=== PATIENT | female | born 1990 | race Caucasian/White ===

== ENCOUNTER 2021-01-06 10:57 | Inpatient (IN) | payer BC, MEDICAID ==
[~2021-01-06] VITALS: Ht 170.2 cm; Wt 56.7 kg
--- NOTE | 2021-01-06 11:27 | NUR ---
30 years old female alert, oriented x4 presents to er c/o sharp right side abdominal pain with nausea no vomiting.
[2021-01-06] MEDS ORDERED: IV NORMAL SALINE 1000 ML BAG IV ONE ×2 (11:30→14:00)
[2021-01-06 11:38] LABS: MEAN CORPUSCULAR HEMOGLOBIN 29.5 uug (24.7-32.8); MEAN CORPUSCULAR VOLUME 89.9 fL (75.5-95.3); PLATELET COUNT (AUTO) 486 K/uL (179-408)
[2021-01-06 11:41] LABS: POTASSIUM 3.4 mmol/L (3.5-5.1)
[2021-01-06 11:48] LABS: BILIRUBIN,DIRECT 0.1 mg/dL (0.0-0.2); BILIRUBIN,TOTAL 0.2 mg/dL (0.2-1.0); CREATININE 0.7 mg/dL (0.6-1.3); TOTAL PROTEIN, SERUM 8.1 g/dL (6.4-8.2)
[2021-01-06 13:13] LABS: *BLOOD, URINE 3+ (NEGATIVE); *CLARITY,URINE CLEAR (CLEAR); *COLOR,URINE YELLOW (YELLOW); *URINE HCG, QUAL NEGATIVE (NEGATIVE); UGLUCOSE NEGATIVE (NEGATIVE)
[2021-01-06 13:14] LABS: *BILIRUBIN,URIN 1+ (NEGATIVE); *KETONES,URINE NEGATIVE (NEGATIVE); *UROBILINOGEN,URINE 0.2 E.U./dl (NORMAL); LEUKOCYTE ESTERASE ,URINE TRACE (NEGATIVE); NITRITE, URINE NEGATIVE (NEGATIVE)
[2021-01-06] MEDS ORDERED: PIPERACILLIN SODIUM/TAZOBACTAM 3.375 G in IV DEXTROSE 5% 50 ML IV ONE (14:00)
[2021-01-06] MEDS ORDERED: PIPERACILLIN/TAZOBACTAM/D5W 50 ML IV ONE (14:05)
--- NOTE | 2021-01-06 15:26 | NUR ---
patient reassess resting no acute distress vital stable awaiting for admit bed.
[2021-01-06 16:10] LABS: BACTERIA,URINE FEW /HPF (NONE SEEN); MUCUS,URINE FEW /LPF (0-FEW); SQUAMOUS EPITHELIAL CELL,UR FEW /HPF (NONE SEEN); URINE AMORPHOUS PHOSPHATES FEW /HPF
[2021-01-06] MEDS ORDERED: ONDANSETRON 4 MG/2 ML VIAL IV PRN (17:15)
[2021-01-06] MEDS ORDERED: ACETAMINOPHEN 650 MG SUPP.RECT RC PRN (17:15)
[2021-01-06] MEDS: levoFLOXacin 500 MG/D5W 500 MG in PREMIXED 1 EACH IV SCH (17:29)
[2021-01-06] MEDS ORDERED: levoFLOXacin 500 MG/D5W 100 ML ONE (17:35)
--- NOTE | 2021-01-06 18:24 | NUR ---
patient denies breakthrough pain, no nausea vomiting, resume NPO. vital stable.
[2021-01-06] MEDS: POTASSIUM CHLORIDE 20 MEQ in IV D5 1/2 NS 1000 ML 1,000 ML IV PRN (18:50)
--- NOTE | 2021-01-06 19:13 | NUR ---
Report recieved on pt. from RN for continuity of care.
--- NOTE | 2021-01-06 19:15 | NUR ---
covid swab collected/sent to lab, report endorsed to nurse Moeller all questions answered.
[2021-01-06 22:27] VITALS: BP 116/78
[2021-01-06] MEDS: MORPHINE SULFATE 2 MG/1 ML DISP.SYRIN IV PRN (23:23)
[2021-01-06] MEDS: METRONIDAZOLE 500 MG/NS 100ML 500 MG in PREMIXED 1 EACH IV SCH (23:23)
[2021-01-06] MEDS ORDERED: METRONIDAZOLE 500 MG/NS 100ML 100 ML IV ONE (23:58)
--- NOTE | 2021-01-07 01:51 | NUR ---
Received patient from ER via WC. Ambulated from the WC to the bed without assistance. Steady gait, repositioned self in bed. C/o 4/10 abdominal pain, sharp. Pain worsened to 8/10 administered morphine PRN, tolerated well, effective 3/10 pain. No s/s of adverse reaction noted from antibiotics IV. Patient is sleeping intermittently. Oriented pt to room. Belonging list completed. Routine admission care done. Call light and al personal items within pt reach. Safety measure maintained.Continue care as planned.
[2021-01-07 04:00] VITALS: BP 117/66
[2021-01-07] MEDS: MORPHINE SULFATE 2 MG/1 ML DISP.SYRIN IV PRN ×5 (04:12→20:09)
[2021-01-07] MEDS: METRONIDAZOLE 500 MG/NS 100ML 500 MG in PREMIXED 1 EACH IV SCH ×3 (05:46→21:17)
[2021-01-07 06:08] LABS: HEMATOCRIT 32.3 % (31.2-41.9); MEAN CORPUSCULAR HEMOGLOBIN 29.6 uug (24.7-32.8); MEAN CORPUSCULAR VOLUME 90.2 fL (75.5-95.3); PLATELET COUNT (AUTO) 455 K/uL (179-408)
[2021-01-07 06:24] LABS: BILIRUBIN,TOTAL 0.3 mg/dL (0.2-1.0); CREATININE 0.6 mg/dL (0.6-1.3); MAGNESIUM 1.8 mg/dL (1.8-2.4); PHOSPHOROUS 3.2 mg/dL (2.5-4.9); POTASSIUM 3.1 mmol/L (3.5-5.1); TOTAL PROTEIN, SERUM 6.3 g/dL (6.4-8.2)
[2021-01-07] MEDS: POTASSIUM CHLORIDE 20 MEQ in IV D5 1/2 NS 1000 ML 1,000 ML IV PRN ×2 (07:29→21:14)
[2021-01-07] MEDS ORDERED: POTASSIUM CHLORIDE 20 MEQ TAB.PRT.SR PO ONE (08:15)
--- NOTE | 2021-01-07 08:30 | NUR ---
patient father Mr bui called, patient Miss Mooney verbally consented to give information and talk to her father, father was insisting to call Dr Montano right away and would like dr Montano to see his daughter right away and wants himself to be present as well. this script writer called dr Carter, and spoke to dr Carter, per dr Carter he is not going to see patient here, patient can follow up outpatient with him, and patient can be started on clear liquid diet. patient father made aware that they can follow up with GI dr Carter outpatient and patient will be started on clear liquid diet. dr garvin is aware as well.
[2021-01-07] MEDS: PANTOPRAZOLE SODIUM 40 MG VIAL IV SCH (08:45)
--- NOTE | 2021-01-07 09:41 | NUR ---
patient tolerated clear liquid well, denied nausea or vomiting
[2021-01-07 11:44] VITALS: BP 108/56
[2021-01-07] MEDS ORDERED: NORG1TAB75 PO (13:41)
[2021-01-07] MEDS: levoFLOXacin 500 MG/D5W 500 MG in PREMIXED 1 EACH IV SCH (16:48)
[2021-01-07 17:05] VITALS: BP 110/59
--- NOTE | 2021-01-07 19:35 | NUR ---
Received pt in bed, awake and verbally responsive, able to make needs known. No signs of respiratory distress. IVF infusing well .Safety measures initiated, call light within reach, will continue to monitor.
[2021-01-07 20:25] VITALS: BP 140/111
[2021-01-07 20:30] VITALS: BP 109/68
[2021-01-08] MEDS: MORPHINE SULFATE 2 MG/1 ML DISP.SYRIN IV PRN ×6 (01:13→23:52)
[2021-01-08 04:55] VITALS: BP 113/69
[2021-01-08] MEDS: METRONIDAZOLE 500 MG/NS 100ML 500 MG in PREMIXED 1 EACH IV SCH ×3 (05:41→21:30)
--- NOTE | 2021-01-08 06:19 | NUR ---
Slept intermittently through the night. No significant change in condition noted. Administered pain medication q3h as ordered. Pt tolerated medications well. IVF infusing well. All needs attended to and met. Safety and comfort measures provided. Call light within reach.
[2021-01-08 06:42] LABS: HEMATOCRIT 31.5 % (31.2-41.9); MEAN CORPUSCULAR HEMOGLOBIN 29.9 uug (24.7-32.8); MEAN CORPUSCULAR VOLUME 89.5 fL (75.5-95.3); PLATELET COUNT (AUTO) 511 K/uL (179-408)
[2021-01-08 06:58] LABS: CREATININE 0.6 mg/dL (0.6-1.3); MAGNESIUM 1.7 mg/dL (1.8-2.4); POTASSIUM 3.6 mmol/L (3.5-5.1)
[2021-01-08] MEDS: PANTOPRAZOLE SODIUM 40 MG VIAL IV SCH (08:09)
[2021-01-08 11:45] VITALS: BP 106/69
--- NOTE | 2021-01-08 12:03 | NUR ---
Awake, alert and responsive. In no acute distress. No nausea or vomiting reported. IV infusing well. Kept comfortable. Will continue to monitor.
[2021-01-08] MEDS: POTASSIUM CHLORIDE 20 MEQ in IV D5 1/2 NS 1000 ML 1,000 ML IV PRN (12:12)
[2021-01-08] MEDS ORDERED: MAGNESIUM OXIDE 400 MG TABLET PO ONE (12:15)
[2021-01-08] MEDS: MAGNESIUM SULFATE/D5W 100 ML IV SCH ×2 (14:33→16:05)
[2021-01-08 15:29] VITALS: BP 107/63
--- NOTE | 2021-01-08 16:10 | NUR ---
Rechecked pt's temp noted 99 degrees F.
[2021-01-08] MEDS: levoFLOXacin 500 MG/D5W 500 MG in PREMIXED 1 EACH IV SCH (17:40)
--- NOTE | 2021-01-08 19:14 | NUR ---
Patient in bed, alert and responsive. In no acute distress. IV hydration ongoing. On atb no adverse reaction noted. Safety precautions maintained. Endorsed to next shift.
[2021-01-08 20:30] VITALS: BP 119/72
--- NOTE | 2021-01-08 21:11 | NUR ---
Patient in bed awake alert x 4. On Ra.No acute distress noted. Ambulates to bathroom. Iv on right hand 22g patent and intact with IVf infusing well.Patient noted with temp of 100.5.[place] removed and tylenol supp given. Patient was already seen by ID/N.P with leukocytosis .Temp went down to 97.8 .Administered IV ATb as ordered .No a/r reaction noted. Family member at bedside .Will continue to monitor.
[2021-01-09] MEDS: MORPHINE SULFATE 2 MG/1 ML DISP.SYRIN IV PRN ×3 (04:29→21:50)
[2021-01-09 04:36] VITALS: BP 110/80
[2021-01-09] MEDS: METRONIDAZOLE 500 MG/NS 100ML 500 MG in PREMIXED 1 EACH IV SCH ×3 (05:31→21:33)
[2021-01-09 06:28] LABS: HEMATOCRIT 32.8 % (31.2-41.9); MEAN CORPUSCULAR HEMOGLOBIN 29.6 uug (24.7-32.8); MEAN CORPUSCULAR VOLUME 90.9 fL (75.5-95.3); PLATELET COUNT (AUTO) 533 K/uL (179-408)
[2021-01-09] MEDS ORDERED: SWABABLE VALVE TRANSFER SET EA MC ONE (07:29)
[2021-01-09] MEDS ORDERED: DIATR MEGLU/DIATRIZOATE SODIUM 30 ML BOTTLE ONE (07:29)
[2021-01-09] MEDS ORDERED: IV NORMAL SALINE 250 ML IV ONE (07:29)
[2021-01-09] MEDS ORDERED: IOHEXOL 300MG/ML 100 ML INFUS..BTL ONE (07:29)
[2021-01-09] MEDS: PANTOPRAZOLE SODIUM 40 MG VIAL IV SCH (09:12)
[2021-01-09] MEDS: POTASSIUM CHLORIDE 20 MEQ in IV D5 1/2 NS 1000 ML 1,000 ML IV PRN ×2 (09:38→23:18)
[2021-01-09 11:36] VITALS: BP 100/66
[2021-01-09 15:40] VITALS: BP 98/60
[2021-01-09] MEDS: levoFLOXacin 500 MG/D5W 500 MG in PREMIXED 1 EACH IV SCH (16:46)
--- NOTE | 2021-01-09 18:02 | NUR ---
Patient is alert oriented x4, verbally responsive, no sob, resp even nonlabored skin warm and dry to touch, patient kept npo, Examined by various consultations, Dr Leslie gave telephone order for laparoscopy possible laparotomy possible bowel resection, dr Carter was talking to patient while patient father was on the phone as well, dr garvin made aware about plan of care. patient still complains pain and tenderness to her lower abdomen, some nausea but manageable without medication. Addendum: 01/09/21 at 1812 by FLO BLAIR RN, RN able to ambulate herself, IV is intact to left antecubital and right hand, no signs and symptoms of infiltration noted.
--- NOTE | 2021-01-09 19:24 | NUR ---
consent printed and provided to patient for laproscopy tomorrow, endorsed to next shift to follow up
--- NOTE | 2021-01-09 19:45 | NUR ---
Patient in bed awake and alert ,denies abd'l pain at this time.No n/v.No s/s of distress noted. Consent signed by patient ,placed in the patient's chart.Iv on right hand patent and intact with IVf infusing well. Left AC Iv noted infiltrated. Dc'd IV line .NPO after midnight. Family members at bedside. VSS.will continue to monitor.
[2021-01-09 20:15] VITALS: BP 124/66
[2021-01-10] MEDS: MORPHINE SULFATE 2 MG/1 ML DISP.SYRIN IV PRN ×3 (03:37→12:09)
[2021-01-10 04:15] VITALS: BP 109/65
[2021-01-10] MEDS: METRONIDAZOLE 500 MG/NS 100ML 500 MG in PREMIXED 1 EACH IV SCH ×3 (05:46→21:22)
[2021-01-10] MEDS ORDERED: HYDROMORPHONE 2 MG/1 ML DISP.SYRIN ONE (06:51)
[2021-01-10] MEDS ORDERED: ROCURONIUM BROMIDE 50 MG/5 ML VIAL ONE (06:51)
[2021-01-10] MEDS ORDERED: MIDAZOLAM HCL 2 MG/2 ML VIAL ONE (06:51)
--- NOTE | 2021-01-10 06:53 | NUR ---
Patient awake in no acute distress noted.Picked up for surgery this morning.Will endorse to oncoming shift.
[2021-01-10] MEDS ORDERED: BUPIVACAINE/EPI PF 0.25% 30 ML VIAL ONE (07:18)
--- NOTE | 2021-01-10 07:30 | NUR ---
Patient is currently in the OR.
[2021-01-10] MEDS ORDERED: NEOSTIGMINE METHYLSULFATE 10 MG/10 ML VIAL IM ONE (08:48)
[2021-01-10] MEDS ORDERED: SUCCINYLCHOLINE CHLORIDE 200 MG/10 ML VIAL IV ONE (08:48)
[2021-01-10] MEDS ORDERED: PROPOFOL 200 MG/20 ML BOTTLE IV ONE (08:48)
[2021-01-10] MEDS ORDERED: LIDOCAINE-MPF 2% 5 ML VIAL IJ ONE (08:48)
[2021-01-10] MEDS ORDERED: IV NORMAL SALINE 1000 ML BAG IV ONE (08:48)
[2021-01-10] MEDS ORDERED: SEVOFLURANE 250 ML BOTTLE IH ONE (08:48)
[2021-01-10] MEDS ORDERED: IRR STERIL WATER FOR IRR 1000 ML BOTTLE IR ONE (08:48)
[2021-01-10] MEDS ORDERED: KETOROLAC TROMETHAMINE 30 MG INJ IM ONE (08:48)
[2021-01-10] MEDS ORDERED: GLYCOPYRROLATE 0.2 MG/ML VIAL IJ ONE (08:48)
[2021-01-10] MEDS ORDERED: DEXAMETHASONE SOD PHOSPHATE 4 MG INJ IV ONE (08:48)
[2021-01-10] MEDS ORDERED: ONDANSETRON 4 MG/2 ML VIAL IV ONE (08:48)
[2021-01-10] MEDS ORDERED: ONDANSETRON 4 MG/2 ML VIAL ONE (09:02)
[2021-01-10] MEDS ORDERED: METOCLOPRAMIDE HCL 10 MG/2 ML VIAL ONE (09:14)
--- NOTE | 2021-01-10 10:05 | NUR ---
Patient back on the floor from the OR. Patient received on 2L O2 via NC with oxygen saturation of 98%. Patient has joseluis hose on with SCDs running. Abdominal dressing is clean, dry, and intact at this time. Right hand IV is intact running IVF as ordered with no redness or swelling at this time. Will start patient on incentive spirometer and provide education. Patient states she is having abdominal pain 9 out of 10, morphine administered as ordered.
[2021-01-10] MEDS: PANTOPRAZOLE SODIUM 40 MG VIAL IV SCH (10:08)
[2021-01-10 12:00] VITALS: BP 112/64
[2021-01-10] MEDS: METOCLOPRAMIDE HCL 10 MG/2 ML VIAL IV SCH ×2 (12:02→17:15)
[2021-01-10 12:32] LABS: HEMATOCRIT 36.1 % (31.2-41.9); MEAN CORPUSCULAR HEMOGLOBIN 29.5 uug (24.7-32.8); MEAN CORPUSCULAR VOLUME 91.2 fL (75.5-95.3); PLATELET COUNT (AUTO) 583 K/uL (179-408)
[2021-01-10 12:40] LABS: CREATININE 0.6 mg/dL (0.6-1.3)
--- NOTE | 2021-01-10 13:11 | NUR ---
Patient states that current Morphine 2mg Q2h is not sufficiently reducing her pain post-op. Dr. Leslie was contacted with new orders for Morphine 4mg Q2h at this time. Will continue to monitor the patient.
[2021-01-10] MEDS: CEFAZOLIN 1 G in IV DEXTROSE 5% 50 ML IV SCH ×2 (13:27→21:02)
[2021-01-10] MEDS: MORPHINE SULFATE 4 MG/1 ML DISP.SYRIN IV PRN ×4 (14:19→20:42)
[2021-01-10 16:00] VITALS: BP 119/73
[2021-01-10] MEDS: POTASSIUM CHLORIDE 20 MEQ in IV D5 1/2 NS 1000 ML 1,000 ML IV PRN (16:31)
--- NOTE | 2021-01-10 16:55 | NUR ---
Patient voided about 150mL of clear jean urine in bed tsai.
--- NOTE | 2021-01-10 19:30 | NUR ---
RECEIVED PT AWAKE, ALERT AND ORIENTEDX4. PT IN NO ACUTE DISTRESS. IV INTACT,. PT ON 1L NASAL CANNULA . PT HAD DRY AND INTACT ABDOMINAL DRESSING. SAFETY AND COMFORT PROVIDED. WILL CONTINUE TO MONITOR.
[2021-01-10 20:00] VITALS: BP 103/63
[2021-01-10] MEDS: ACETAMINOPHEN 325 MG TABLET PO PRN (20:20)
[2021-01-10] MEDS ORDERED: METRONIDAZOLE 500 MG/NS 100ML 100 ML IV ONE (20:49)
[2021-01-11] MEDS: MORPHINE SULFATE 4 MG/1 ML DISP.SYRIN IV PRN ×9 (00:05→20:57)
[2021-01-11] MEDS: METOCLOPRAMIDE HCL 10 MG/2 ML VIAL IV SCH ×5 (00:05→23:20)
[2021-01-11 04:00] VITALS: BP 110/63
[2021-01-11] MEDS: CEFAZOLIN 1 G in IV DEXTROSE 5% 50 ML IV SCH (05:28)
[2021-01-11] MEDS: METRONIDAZOLE 500 MG/NS 100ML 500 MG in PREMIXED 1 EACH IV SCH ×3 (05:34→21:11)
--- NOTE | 2021-01-11 05:50 | NUR ---
PT SLEPT INTERMITTENTLY. PT IN NO ACUTE RESPIRATORY DISTRESS. PT GIVEN MORPHINE SULFATE 4MG PRN AT 2042H, 0005H, 0312H,and 0534h FOR ABDOMINAL PAIN. PRESCRIBED MEDICATION GIVEN AND PT TOLERATED IT WELL. SAFETY AND COMFORT PROVIDED. ALL NEEDS ARE MET. PT STABLE. WILL ENDORSE TO INCOMING NURSE FOR CONTINUITY OF CARE
[2021-01-11 06:45] LABS: HEMATOCRIT 31.7 % (31.2-41.9); MEAN CORPUSCULAR HEMOGLOBIN 29.7 uug (24.7-32.8); MEAN CORPUSCULAR VOLUME 90.5 fL (75.5-95.3); PLATELET COUNT (AUTO) 556 K/uL (179-408)
[2021-01-11 06:53] LABS: BILIRUBIN,TOTAL 0.1 mg/dL (0.2-1.0); CREATININE 0.6 mg/dL (0.6-1.3); MAGNESIUM 1.8 mg/dL (1.8-2.4); PHOSPHOROUS 2.8 mg/dL (2.5-4.9); POTASSIUM 3.9 mmol/L (3.5-5.1); TOTAL PROTEIN, SERUM 5.8 g/dL (6.4-8.2)
[2021-01-11] MEDS: PANTOPRAZOLE SODIUM 40 MG VIAL IV SCH (08:14)
--- NOTE | 2021-01-11 11:19 | NUR ---
alert, oriented, c/o of pain on incisional site, tender to touch. Requested morphine 4mg ivp , religuously. able to walk to bathroom, self, " lots of pain when starting getting up" encouraged to ambulate , at least from her bed to the nursing station, " doing my best when i can, i will walk". R side horizontal incision, dressing cdi. on clear liquid , did not eat. advised to take at least one ensure liquid
[2021-01-11 12:00] VITALS: BP 113/67
[2021-01-11] MEDS ORDERED: CEFTRIAXONE 1 G VIAL IM SCH (12:00)
[2021-01-11] MEDS: CEFTRIAXONE 1 G in IV DEXTROSE 5% 50 ML IV SCH (14:31)
[2021-01-11 16:00] VITALS: BP 118/61
--- NOTE | 2021-01-11 17:33 | NUR ---
CONTINUES TO ASK FOR MORPHINE, 4MG IVP, GIVEN ALMOST EVERY 2HRS. DOZING ON AND OFF, DID NOT EAT MUCH OF HER CLEAR LIQUID DIET. WITH ENCOURAGEMENT, AMBULATES FROM ROOM TO THE NURSING STATION BACK, ABDOMINAL BINDER WRAPPED AROUND HER TRUNK, WHICH FALICITATES AMBULATION. CLAIMED SHE PASSED GAS.
[2021-01-11] MEDS: ACETAMINOPHEN 325 MG TABLET PO PRN (17:50)
--- NOTE | 2021-01-11 17:58 | NUR ---
1730 SPIKING TEMP 101.1, TYLENOL 650MG PO GIVEN THIS IS POD#1 FOR THIS YOUNG PATIENT, NEEDS ENCOURAGEMENT TO USE IS, DID NOT FOLLOW INSTRUCTIONS WELL. EVERY EFFORT SHE MAKES, CLAIMED IT HURSTS. WILL NEED TO CLOSELY MONITOR HER TEMP, AND HER ACTIVITIES STARTING POD #2
[2021-01-11 20:00] VITALS: BP 106/67
[2021-01-12] MEDS: MORPHINE SULFATE 4 MG/1 ML DISP.SYRIN IV PRN ×9 (00:41→23:12)
[2021-01-12 04:24] VITALS: BP 119/71
[2021-01-12] MEDS: METRONIDAZOLE 500 MG/NS 100ML 500 MG in PREMIXED 1 EACH IV SCH ×3 (05:14→21:03)
[2021-01-12] MEDS: METOCLOPRAMIDE HCL 10 MG/2 ML VIAL IV SCH ×4 (05:24→23:12)
[2021-01-12] MEDS: POTASSIUM CHLORIDE 20 MEQ in IV D5 1/2 NS 1000 ML 1,000 ML IV PRN ×2 (05:43→17:51)
[2021-01-12 06:45] LABS: HEMATOCRIT 30.5 % (31.2-41.9); MEAN CORPUSCULAR HEMOGLOBIN 29.8 uug (24.7-32.8); MEAN CORPUSCULAR VOLUME 90.9 fL (75.5-95.3); PLATELET COUNT (AUTO) 530 K/uL (179-408)
[2021-01-12 06:53] LABS: CREATININE 0.6 mg/dL (0.6-1.3); POTASSIUM 3.7 mmol/L (3.5-5.1)
[2021-01-12] MEDS: PANTOPRAZOLE SODIUM 40 MG VIAL IV SCH (08:36)
[2021-01-12 12:00] VITALS: BP 101/62
[2021-01-12] MEDS: CEFTRIAXONE 1 G in IV DEXTROSE 5% 50 ML IV SCH (12:12)
[2021-01-12 16:00] VITALS: BP 115/76
--- NOTE | 2021-01-12 19:26 | NUR ---
Patient resting in bed, AOx4. On room air. Patient complained of pain at operative site, Morphine PRN given. Patient tolerated well. Patient compliant with medications and care. Will endorse to incoming shift for continuity of care.
[2021-01-12 20:00] VITALS: BP 115/80
[2021-01-12 23:31] VITALS: BP 115/80
[2021-01-13 04:00] VITALS: BP 119/68
[2021-01-13] MEDS: POTASSIUM CHLORIDE 20 MEQ in IV D5 1/2 NS 1000 ML 1,000 ML IV PRN ×2 (04:28→14:24)
[2021-01-13] MEDS: METRONIDAZOLE 500 MG/NS 100ML 500 MG in PREMIXED 1 EACH IV SCH (05:10)
[2021-01-13] MEDS: METOCLOPRAMIDE HCL 10 MG/2 ML VIAL IV SCH (05:34)
[2021-01-13 06:06] LABS: HEMATOCRIT 31.4 % (31.2-41.9); MEAN CORPUSCULAR HEMOGLOBIN 29.9 uug (24.7-32.8); MEAN CORPUSCULAR VOLUME 89.7 fL (75.5-95.3); PLATELET COUNT (AUTO) 549 K/uL (179-408)
[2021-01-13 06:44] LABS: CREATININE 0.6 mg/dL (0.6-1.3); MAGNESIUM 1.8 mg/dL (1.8-2.4); PHOSPHOROUS 3.6 mg/dL (2.5-4.9); POTASSIUM 3.9 mmol/L (3.5-5.1)
[2021-01-13] MEDS ORDERED: PANTOPRAZOLE SODIUM 40 MG TABLET.DR PO SCH (07:00)
[2021-01-13] MEDS ORDERED: METOCLOPRAMIDE HCL 10 MG TABLET PO SCH (11:30)
[2021-01-13 11:40] VITALS: BP 119/78
[2021-01-13] MEDS ORDERED: KETOROLAC TROMETHAMINE 30 MG INJ IVP PRN (12:00)
[2021-01-13] MEDS: HYDROCODONE/APAP 5-325MG TABLET PO PRN ×2 (12:03→16:57)
[2021-01-13] MEDS: CEFTRIAXONE 1 G in IV DEXTROSE 5% 50 ML IV SCH (14:24)
[2021-01-13 14:47] LABS: *GC NAA Negative; *TRIC.VAG. NAA Negative
[2021-01-13 14:48] LABS: HEPATITIS A AB, IgM Negative
[2021-01-13 14:49] LABS: HEPATITIS A AB, TOTAL Positive
[2021-01-13 14:54] LABS: HEPATITIS B SURFACE AB Reactive; HEPATITIS B SURFACE AG Negative
[2021-01-13] MEDS ORDERED: ONDA4TAB11 PO (15:51)
[2021-01-13] MEDS ORDERED: HYDR-3972 PO (15:51)
[2021-01-13 16:00] VITALS: BP_SYST 108; BP_DIAS 73; BP_DIAS 75
== END 2021-01-13 17:30 | disposition home or self-care (01) | DRG 329 ==
LOC: ER 10:59 → MEDSURG3 20:41
PROVIDERS: ADMIT Internal Medicine; ATTEND Nurse Practitioner Family
PROC: 0DTF0ZZ Resection of Right Large Intestine, Open Approach (ICD-10-PCS; principal; 2021-01-10)
DX: K50.00 Crohn's disease of small intestine without complications (principal); E43 Unspecified severe protein-calorie malnutrition; Z68.1 Body mass index [BMI] 19.9 or less, adult; K66.0 Peritoneal adhesions (postprocedural) (postinfection); K50.014 Crohn's disease of small intestine with abscess; Z91.010 Allergy to peanuts; N83.201 Unspecified ovarian cyst, right side; E87.6 Hypokalemia; Z20.822 Contact with and (suspected) exposure to COVID-19; R59.0 Localized enlarged lymph nodes; D64.9 Anemia, unspecified; E83.42 Hypomagnesemia; R16.0 Hepatomegaly, not elsewhere classified; R19.03 Right lower quadrant abdominal swelling, mass and lump; N80.9 Endometriosis, unspecified
CPT/HCPCS: 36415; 83605; 83615; 83690; 83735; 84100; 84703; 85025; 85651; 85730; 86140; 86592; 86706; 86708; 86709; 86803; 87040; 87086; 87340; 87491; 87806; A4217; A4649; A4663; C9113; G0378; J0330; J0690; J0696; J1100; J1170; J1885; J1956; J2250; J2270; J2405; J2543; J2765; J3475; J3480; J3490; J7030; J7050; J7060; J8597; Q9963; Q9967

== ENCOUNTER 2021-04-03 02:14 | Inpatient (IN) | payer BC ==
[~2021-04-03] VITALS: Ht 170.2 cm; Wt 56.7 kg
[~2021-04-03 02:14] MED LIST: HYDR-3972 PO; ONDA4TAB11 PO
--- NOTE | 2021-04-03 02:44 | NUR ---
Dr. Cornelius at bedside for mse. Pt here for chrons disease flare up. Pt has 10/10 nonradiating abdominal pain with vomiting and chills. Abdominal pain started last night, vomiting started today. No fever or diarrhea. Pt had small soft BM this evening prior to arrival.
[2021-04-03] MEDS ORDERED: ONDANSETRON 4 MG/2 ML VIAL IV ONE ×2 (03:00→17:59)
[2021-04-03] MEDS ORDERED: IV NORMAL SALINE 1000 ML BAG IV ONE (03:00)
[2021-04-03] MEDS ORDERED: MORPHINE SULFATE 4 MG/1 ML DISP.SYRIN IV ONE (03:00)
[2021-04-03] MEDS ORDERED: MORPHINE SULFATE 4 MG/1 ML DISP.SYRIN ONE (03:03)
[2021-04-03] MEDS ORDERED: ONDANSETRON 4 MG/2 ML VIAL ONE ×2 (03:03→03:50)
[2021-04-03 03:06] LABS: HEMATOCRIT 36.5 % (31.2-41.9); MEAN CORPUSCULAR VOLUME 91.9 fL (75.5-95.3); PLATELET COUNT (AUTO) 361 K/uL (179-408)
[2021-04-03 03:11] LABS: CARBON DIOXIDE 22 mmol/L (21-32); CHLORIDE 105 mmol/L (98-107); CREATININE 0.9 mg/dL (0.6-1.3); GLUCOSE 168 mg/dL (74-106); POTASSIUM 3.5 mmol/L (3.5-5.1); UREA NITROGEN, BLOOD 9 mg/dL (7-18)
[2021-04-03] MEDS ORDERED: KETAMINE HCL 500 MG/10 ML INJ IV ONE (03:15)
[2021-04-03] MEDS ORDERED: LORAZEPAM 2 MG/1 ML VIAL IV ONE (03:15)
[2021-04-03 03:17] LABS: ALANINE AMINOTRANSFERASE 22 U/L (14-59); ALKALINE PHOSPHATASE 44 U/L (50-136); ASPARTATE AMINOTRANSFERASE 15 U/L (15-37); BILIRUBIN,DIRECT 0.1 mg/dL (0.0-0.2); BILIRUBIN,TOTAL 0.3 mg/dL (0.2-1.0); LIPASE 80 U/L (73-393); TOTAL PROTEIN, SERUM 8.3 g/dL (6.4-8.2)
[2021-04-03] MEDS ORDERED: LORAZEPAM 2 MG/1 ML VIAL ONE (03:32)
[2021-04-03] MEDS ORDERED: KETAMINE HCL 500 MG/10 ML INJ ONE ×2 (03:32→04:33)
[2021-04-03] MEDS ORDERED: ONDANSETRON 4 MG/2 ML VIAL IV STA (03:40)
[2021-04-03] MEDS ORDERED: SWABABLE VALVE TRANSFER SET EA MC ONE (03:54)
[2021-04-03] MEDS ORDERED: IV NORMAL SALINE 250 ML IV ONE (03:55)
[2021-04-03] MEDS ORDERED: IOHEXOL 300MG/ML 100 ML INFUS..BTL ONE (03:55)
--- NOTE | 2021-04-03 04:13 | NUR ---
Back from CT.
[2021-04-03] MEDS ORDERED: KETAMINE HCL 500 MG/10 ML INJ IV STA (04:26)
[2021-04-03 04:37] LABS: *BILIRUBIN,URIN NEGATIVE (NEGATIVE); *CLARITY,URINE CLEAR (CLEAR); *COLOR,URINE YELLOW (YELLOW); *KETONES,URINE TRACE (NEGATIVE); *UROBILINOGEN,URINE 0.2 E.U./dl (NORMAL); LEUKOCYTE ESTERASE ,URINE TRACE (NEGATIVE); NITRITE, URINE NEGATIVE (NEGATIVE); PH,URINE 5.5 (5.0-8.0); UGLUCOSE NEGATIVE (NEGATIVE)
[2021-04-03 04:44] LABS: *BLOOD, URINE TRACE INTACT (NEGATIVE)
[2021-04-03 04:45] LABS: RBC,URINE 0-3 /HPF (0-3); SQUAMOUS EPITHELIAL CELL,UR FEW /HPF (NONE SEEN); WBC,URINE 0-3 /HPF (0-3)
--- NOTE | 2021-04-03 04:52 | NUR ---
Pt. sleeping. NAD. VSS. Will continue to monitor.
[2021-04-03] MEDS ORDERED: METOCLOPRAMIDE HCL 10 MG/2 ML VIAL IV ONE (05:15)
[2021-04-03] MEDS ORDERED: HYDROMORPHONE 1 MG/1 ML DISP.SYRIN IV ONE (05:15)
--- NOTE | 2021-04-03 05:15 | NUR ---
Radiologist called Dr. Cornelius to report CT findings of obstruction.
[2021-04-03] MEDS ORDERED: METOCLOPRAMIDE HCL 10 MG/2 ML VIAL ONE (05:17)
[2021-04-03] MEDS ORDERED: HYDROMORPHONE 1 MG/1 ML DISP.SYRIN ONE (05:17)
--- NOTE | 2021-04-03 05:21 | NUR ---
Dr. Cornelius spoke w/ Dr. Wilkins for surgery consult for pt.
--- NOTE | 2021-04-03 05:23 | NUR ---
Paged [facility] for pt. admission. Eden Blair will call back.
[2021-04-03] MEDS ORDERED: IV NS 1000 ML 1,000 ML IV ONE (05:30)
[2021-04-03] MEDS ORDERED: ONDANSETRON 4 MG/2 ML VIAL IV PRN (05:45)
[2021-04-03] MEDS ORDERED: MAGNESIUM HYDROXIDE 30 ML LIQUID UDC PO PRN (05:45)
[2021-04-03] MEDS ORDERED: HYDROMORPHONE 1 MG/1 ML DISP.SYRIN IV PRN ×3 (05:45→09:00)
[2021-04-03] MEDS ORDERED: ACETAMINOPHEN 325 MG TABLET PO PRN (05:45)
[2021-04-03] MEDS ORDERED: Z GUARD REMEDY PASTE 57 GM TUBE TOP PRN (05:45)
--- NOTE | 2021-04-03 06:40 | NUR ---
NG tube placed per Dr. Cornelius. Xray confirmed placement. Suction on low-intermittent. Pt. sleeping. VSS. NAD. Will continue to monitor.
--- NOTE | 2021-04-03 06:50 | NUR ---
Dr. Wilkins from General Surgery at bedside to evaluate pt.
--- NOTE | 2021-04-03 07:22 | NUR ---
Nasal gastric tube advanced 2 inches per MD verbal orders, radiology at bedside to check placement at this time
--- NOTE | 2021-04-03 08:08 | NUR ---
Report given to Krupa TEMPLE
--- NOTE | 2021-04-03 08:32 | NUR ---
Patient transfered to [facility] room 303 at this time
[2021-04-03] MEDS ORDERED: IV NS 1000 ML 1,000 ML IV PRN (09:00)
[2021-04-03 09:09] VITALS: BP 165/82
[2021-04-03 12:00] VITALS: BP 130/71
[2021-04-03] MEDS: PANTOPRAZOLE SODIUM 40 MG VIAL IV SCH (12:27)
[2021-04-03] MEDS ORDERED: LIDOCAINE 1%-EPI 1:100,000 20 ML VIAL ONE (12:54)
[2021-04-03] MEDS ORDERED: BACITRACIN ZINC OINT 15 GM TUBE ONE (12:54)
[2021-04-03] MEDS ORDERED: BUPIVACAINE 0.25% 30 ML VIAL ONE (12:55)
[2021-04-03] MEDS ORDERED: HYDROMORPHONE 2 MG/1 ML DISP.SYRIN ONE (13:25)
[2021-04-03] MEDS ORDERED: MIDAZOLAM HCL 2 MG/2 ML VIAL ONE (13:25)
[2021-04-03] MEDS ORDERED: FAMOTIDINE. 20 MG/2 ML VIAL IV ONE (13:25)
[2021-04-03] MEDS ORDERED: ROCURONIUM BROMIDE 50 MG/5 ML VIAL ONE (13:26)
[2021-04-03] MEDS ORDERED: METRONIDAZOLE 500 MG/NS 100 ML PIGGYBACK IV ONE (14:49)
--- NOTE | 2021-04-03 15:33 | NUR ---
Received patient from ER in stable condition via stretcher around 9am. Patient with NGtube, intact and patent. no c/o of pain/discomfort. Patient DX: Small Bowel Obstruction. Patient for diagnostic laparostomy, open exploratory laparotomy by MD Wilkins, consent signed. Pre op checklist done. not in distress. Patient ambulatory with assist. Bed alarm on, Call light within reach. Fall risk precaution maintained. will continue monitor
[2021-04-03] MEDS ORDERED: HYDROCODONE/APAP 10-325 MG TABLET PO PRN (16:15)
--- NOTE | 2021-04-03 17:20 | NUR ---
Patient S/P Explore lap, lysis of adhesion relief of small bowel obstruction by MD Wilkins, Patient started LR at 100cc/hr. Patient will start clear liquid diet as tolerated. no c/o of pain/discomfort noted. will continue monitor
[2021-04-03 17:46] VITALS: BP 109/63
[2021-04-03] MEDS: IV LACTATED RINGERS SOLUTION 1,000 ML IV PRN (17:49)
[2021-04-03] MEDS ORDERED: LIDOCAINE-MPF 2% 5 ML VIAL MC ONE (17:59)
[2021-04-03] MEDS ORDERED: PROPOFOL 200 MG/20 ML BOTTLE IV ONE (17:59)
[2021-04-03] MEDS ORDERED: SUCCINYLCHOLINE CHLORIDE 200 MG/10 ML VIAL MC ONE (17:59)
[2021-04-03] MEDS ORDERED: DEXAMETHASONE SOD PHOSPHATE 4 MG INJ IV ONE (17:59)
[2021-04-03] MEDS ORDERED: SEVOFLURANE 250 ML BOTTLE IH ONE (17:59)
[2021-04-03] MEDS ORDERED: GLYCOPYRROLATE 0.2 MG/ML VIAL MC ONE (17:59)
[2021-04-03] MEDS ORDERED: KETOROLAC TROMETHAMINE 30 MG INJ IM ONE (17:59)
[2021-04-03] MEDS ORDERED: CEFAZOLIN 1 G VIAL MC ONE (17:59)
--- NOTE | 2021-04-03 20:11 | NUR ---
Patient in bed AALox4 .Denies pain at this time.No acute distress noted. Denies N/V. NGT was dc'd, per patient it was removed earlier.Surgical site on left abdomen area with dressing intact clean and dry.No active bleeding or drainage noted.Iv on left Ac noted leaking. Inserted new Iv line on right wrist 22 g with good blood return.IVF infusing well.Patient ambulates to bathroom 2x.Urinated well. Call light with in reach.
[2021-04-03 20:30] VITALS: BP 112/64
[2021-04-04] MEDS: IV LACTATED RINGERS SOLUTION 1,000 ML IV PRN (04:05)
[2021-04-04 04:50] VITALS: BP 98/58
[2021-04-04 05:47] LABS: HEMATOCRIT 30.1 % (31.2-41.9); MEAN CORPUSCULAR HEMOGLOBIN 31.4 uug (24.7-32.8); MEAN CORPUSCULAR VOLUME 92.9 fL (75.5-95.3); PLATELET COUNT (AUTO) 280 K/uL (179-408)
[2021-04-04 05:57] LABS: BILIRUBIN,TOTAL 0.3 mg/dL (0.2-1.0); CREATININE 0.6 mg/dL (0.6-1.3); MAGNESIUM 1.9 mg/dL (1.8-2.4); PHOSPHOROUS 2.5 mg/dL (2.5-4.9); POTASSIUM 3.6 mmol/L (3.5-5.1)
--- NOTE | 2021-04-04 06:16 | NUR ---
Patient awake. Denies abd'l pain throughout the shift. Per patient she was able to pass gas but no BM yet.Continue on IVF.All needs anticipated and met accordingly.
--- NOTE | 2021-04-04 07:40 | NUR ---
Received patient lying in bed. AOx4. No acute distress noted. Patient is on room air, denies pain, or shortness of breath. Patient is ambulatory, with no assistance needed. IV on the right wrist is patent and intact, with no redness or swelling noted. Due medications were given. Flatulence present. Safety and comfort measures maintained. Call light within reach. Will continue to monitor.
[2021-04-04] MEDS: PANTOPRAZOLE SODIUM 40 MG VIAL IV SCH (08:43)
[2021-04-04 11:10] VITALS: BP 109/55
[2021-04-04 15:06] VITALS: BP 97/54
[2021-04-04] MEDS ORDERED: HYDR-3972 PO (16:33)
--- NOTE | 2021-04-04 16:40 | NUR ---
S/P day 1 Exploratory Laparotomy, lysis of adhesion. Patient was able to pass stool. Notified DENTAL ASSISTANT/MD. Min DEVI approved patient for Discharge. Await D/C order.
--- NOTE | 2021-04-04 17:16 | NUR ---
PATIENT EXPRESSED DESIRE TO GO HOME NATHEN HIGGINBOTHAM NOTIFIED AND SAID DR ZUNIGA NEEDS TO CLEAR PATIENT. DR ZUNIGA NOTIFIED MADE AWARE OF PATIENT TOLERATING FULL LIQUID DIET, ABLE TO PASS FLATUS AND HAD BM. DR ZUNIGA SAID PATIENT CAN GO HOME BUT NEED TO COME AND SEE ME IN 3 DAYS FOR CHECK UP/FOLLOW-UP
--- NOTE | 2021-04-04 18:00 | NUR ---
Prepped patient for discharge. Removed IV and ID band. Discussed discharge instructions. Advised patient to see Dr. Wilkins at his office in 3 days. Patient acknowledged instructions, signed D/C forms and left unit at 5:50PM, accompanied by boyfriend.
== END 2021-04-04 18:00 | disposition home or self-care (01) | DRG 336 ==
LOC: ER 02:16 → MEDSURG3 08:18
PROVIDERS: ADMIT Nurse Practitioner Family; ATTEND Nurse Practitioner Family
PROC: 0DN84ZZ Release Small Intestine, Percutaneous Endoscopic Approach (ICD-10-PCS; principal; 2021-04-03)
DX: K56.50 Intestinal adhesions [bands], unspecified as to partial versus complete obstruction (principal); E87.2 Acidosis; K50.912 Crohn's disease, unspecified, with intestinal obstruction; Z20.822 Contact with and (suspected) exposure to COVID-19; Z90.49 Acquired absence of other specified parts of digestive tract; D72.829 Elevated white blood cell count, unspecified
CPT/HCPCS: 36415; 71045; 83605; 83690; 83735; 84100; 85025; A4649; A4663; C9113; G0378; J1170; J2060; J2250; J2270; J2405; J2765; J3490; J7030; J7050; Q9967